=== PATIENT | female | born 1980 | race Two or more races ===

== ENCOUNTER 2017-11-25 18:12 | Emergency (ER) | payer SELFPAY ==
[2017-11-25] MEDS: LIDOCAINE WITH 8.4% SOD BICARB 3 ML DISP.SYRIN. INJ (19:00)
[2017-11-25] MEDS: LIDOCAINE/EPI/TETRACAINE TOPICAL GEL 3 ML. TP (19:40)
[2017-11-25] MEDS: DIPHTH,PERTUSS(ACELL),TET TOX 0.5 ML DISP.SYRIN. VAX IM (19:41)
== END 2017-11-25 21:22 | disposition home or self-care (01) ==
LOC: ER 18:12
DX: S61.011A Laceration without foreign body of right thumb without damage to nail, initial encounter (principal); W45.8XXA Other foreign body or object entering through skin, initial encounter; Y93.89 Activity, other specified; Y99.0 Civilian activity done for income or pay; Y92.89 Other specified places as the place of occurrence of the external cause
CPT/HCPCS: 12002; 90471; 90715; 99283